=== PATIENT | female | born 1985 | race Caucasian/White ===

== ENCOUNTER 2017-04-17 05:56 | Emergency (ER) | payer MEDICAID ==
[~2017-04-17] VITALS: Ht 175.3 cm; Wt 108.9 kg
[2017-04-17 07:35] LABS: Basophils # (auto) 0 uL; Basophils % (auto) 0.4 % (0.0-2.0); Eosinophils # (auto) 0 uL; Eosinophils % (auto) 0.5 % (0.0-7.0); Hematocrit 40.7 % (36.0-46.0); Hemoglobin 14.1 g/dL (12.2-16.2); Lymphocytes # (auto) 1.5 uL; Lymphocytes % (auto) 15.6 % (10.0-50.0); Mean Corpuscular Hemoglobin 33.5 pg (28.0-32.0); Mean Corpuscular Hgb Conc. 34.8 g/dL (32.0-36.0); Mean Corpuscular Volume 96.3 fL (80.0-100.0); Mean Platelet Volume 9.6 fL (7.4-10.4); Monocytes # (auto) 0.5 uL; Monocytes % (auto) 5.4 % (0.0-12.0); Neutrophils # (auto) 7.3 uL; Neutrophils % (auto) 78.1 % (37.0-80.0); Platelet Count (auto) 200 10^3/uL (140-450); Red Cell Distribution Width 12.4 % (11.6-16.0); White Blood Cell 9.4 10^3/uL (4.4-10.8)
[2017-04-17 07:42] VITALS: BP 137/80
[2017-04-17] MEDS ORDERED: KETOROLAC TROMETH 60MG/2ML VIAL IM ONE (07:45)
[2017-04-17 07:46] LABS: Urine Bilirubin Negative (Negative); Urine Color Yellow (Yellow); Urine Glucose Normal (Normal); Urine Ketone Negative (Negative); Urine Nitrite Negative (Negative); Urine RBC 171 /hpf (0 - 4); Urine Squamous Epithelial Cell FEW /hpf (<5); Urine Urobilinogen Normal (Negative); Urine pH 5.5 (5.0-8.0)
[2017-04-17 07:47] LABS: Urine Blood 3+ /uL (Negative)
[2017-04-17 07:51] LABS: Albumin 3.8 g/dL (3.4-5.0); BUN/Creatinine Ratio 14.3; Bilirubin, Total 0.4 mg/dL (0.2-1.0); Calcium 8.5 mg/dL (8.5-10.1); Magnesium 2.3 mg/dL (1.6-2.6); Potassium 3.8 mmol/L (3.5-5.1); Total Protein 7.6 g/dL (6.4-8.2)
[2017-04-17 07:54] LABS: INR 0.91 (0.9-1.15); Partial Thromboplastin Time 26.1 sec (22.64-33.71); Prothrombin Time 9.9 sec (9.37-12.3)
[2017-04-17] MEDS ORDERED: cefTRIAXone SOD 1,000 MG VL IM ONE (08:45)
== END 2017-04-17 09:05 | disposition home or self-care (01) ==
LOC: ER 05:56
DX: N39.0 Urinary tract infection, site not specified (principal); M54.5 Low back pain; Z90.49 Acquired absence of other specified parts of digestive tract; Z88.6 Allergy status to analgesic agent
CPT/HCPCS: 36415; 74176; 80053; 81001; 81025; 82150; 83690; 83735; 85025; 85610; 85730; 96372; 99285; J0696; J1885

== ENCOUNTER 2018-04-15 05:07 | Emergency (ER) | payer MEDICAID ==
[~2018-04-15] VITALS: Ht 175.3 cm; Wt 104.3 kg
[2018-04-15 05:19] VITALS: BP 147/92
== END 2018-04-15 06:57 | disposition home or self-care (01) ==
LOC: EDBD 05:10 → ER 05:10
DX: J03.90 Acute tonsillitis, unspecified (principal); Z90.49 Acquired absence of other specified parts of digestive tract; Z88.6 Allergy status to analgesic agent

== ENCOUNTER 2018-08-06 17:15 | Emergency (ER) | payer MEDICAID ==
[~2018-08-06] VITALS: Ht 180.3 cm; Wt 117.9 kg
[2018-08-06 17:35] VITALS: BP 122/83
[2018-08-06] MEDS ORDERED: cefTRIAXone SOD 1,000 MG VL IM ONE (19:15)
[2018-08-06] MEDS ORDERED: HYDROcodone-ACET 5/325MG TAB PO ONE (19:15)
[2018-08-06] MEDS ORDERED: methylPREDNISolone SOD SUCC 125 MG/2 ML VL IM ONE (19:15)
== END 2018-08-06 20:03 | disposition home or self-care (01) ==
LOC: ER 17:25
DX: J02.9 Acute pharyngitis, unspecified (principal); H66.93 Otitis media, unspecified, bilateral
CPT/HCPCS: 96372; 99284; J0696; J2930

== ENCOUNTER 2019-01-31 22:27 | Emergency (ER) | payer MEDICAID ==
[~2019-01-31] VITALS: Ht 180.3 cm; Wt 108.9 kg
[2019-01-31 22:51] VITALS: BP 123/91
[2019-02-01] MEDS ORDERED: methylPREDNISolone SOD SUCC 125 MG/2 ML VL IM ONE (00:15)
[2019-02-01] MEDS ORDERED: KETOROLAC TROMETH 60MG/2ML VIAL IM ONE (00:15)
== END 2019-02-01 01:25 | disposition home or self-care (01) ==
LOC: ER 22:27
DX: S93.401A Sprain of unspecified ligament of right ankle, initial encounter (principal); Z88.8 Allergy status to other drugs, medicaments and biological substances; W19.XXXA Unspecified fall, initial encounter; Y93.89 Activity, other specified; Y99.8 Other external cause status; Y92.89 Other specified places as the place of occurrence of the external cause
CPT/HCPCS: 73610; 73630; 81025; 96372; 99284; J1885; J2930

== ENCOUNTER 2019-08-24 18:48 | Emergency (ER) | payer MEDICAID ==
[~2019-08-24] VITALS: Ht 180.3 cm; Wt 122.5 kg
[2019-08-24 20:12] VITALS: BP 122/76
[2019-08-24] MEDS ORDERED: AZITHROMYCIN 250 MG TAB PO ONE (21:45)
[2019-08-24] MEDS ORDERED: cefTRIAXone SOD 1,000 MG VL IM ONE (21:45)
[2019-08-25 00:06] LABS: Urine Amorphous Crystal FEW /hpf (None Seen); Urine Bacteria FEW /hpf (None Seen); Urine Blood Negative /uL (Negative); Urine Mucus FEW (None Seen); Urine Specific Gravity 1.022 (1.001-1.035); Urine WBC 4 /hpf (0 - 5)
== END 2019-08-24 23:02 | disposition home or self-care (01) ==
LOC: ER 18:48
DX: Z20.2 Contact with and (suspected) exposure to infections with a predominantly sexual mode of transmission (principal)
CPT/HCPCS: 81001; 96372; 99283; J0696